=== PATIENT | male | born 1990 | race Caucasian/White ===

== ENCOUNTER 2019-06-07 13:50 | Emergency (ER) | payer SELFPAY ==
--- NOTE | 2019-06-07 14:12 | Event Note ---
ED Screening Note ED Screening Note: pt presents to the ED for lower back pain he was working and picked a heavy bag felt a popping sensation never hurt back before no numbness or weakness no bowel or bladder incontinence PMHx none no daily meds no allergies to meds no smoker no drinker no drug use This initial assessment/diagnostic orders/clinical plan/treatment(s) is/are subject to change based on patients health status, clinical progression and re- assessment by fellow clinical providers in the ED. Further treatment and workup at subsequent clinical providers discretion. Patient/guardian urged not to elope from the ED as their condition may be serious if not clinically assessed and managed. Initial orders include: XR of the L-spine
--- NOTE | 2019-06-07 15:02 | XRay Report ---
LUMBOSACRAL SPINE 3 VIEWS INDICATION / CLINICAL INFORMATION: Lower back pain for less than 24 hours. COMPARISON: None available. FINDINGS: BONES / JOINT(S): The vertebral body heights and disc spaces are well-maintained. The pedicles are in tact and the SI joints are normal. There is no evidence of fracture, subluxation or destructive lesio n. SOFT TISSUES: No significant abnormality. ADDITIONAL FINDINGS: None. IMPRESSION: Negative study. Signer Name: Hans Greene MD Signed: 06/07/2019 2:58 PM Workstation Name: [id number]
[2019-06-07] MEDS ORDERED: TORADOL IM ONE (18:05)
[2019-06-07] MEDS ORDERED: FLEXERIL PO ONE (18:05)
--- NOTE | 2019-06-07 18:37 | Emergency Department Report ---
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 Limitations: Language Barrier - History of Present Illness Initial Comments: Patient is a 28-year-old male who presents for low back pain states he was lifting boxes today at work and felt a strain in his low back up in pain aching burning exacerbated by bending twisting there is no numbness no tingling or decrease in bowel or bladder function patient ambulated into ED today MD Complaint: back pain Onset/Timin -: hour(s) Similar Symptoms Previously: Yes Place: work Radiation: none Severity: moderate Severity scale (0 -10): 5 Quality: burning, aching Consistency: constant Improves With: none Worsens With: walking, other (bending / twisting ) Context: while lifting, turning/twisting, bending Associated Symptoms: denies: numbness, difficulty urinating, incontinence, fever/chills - Related Data Previous Rx's Medication Instructions Recorded Last Taken Type Cyclobenzaprine [Flexeril] 10 mg PO TID PRN #30 tablet 06/07/19 Unknown Rx Menthol/Camphor [[place] 1 applicatio TP QID PRN #1 tube 06/07/19 Unknown Rx Ointment] Naproxen [Naprosyn TAB] 500 mg PO BID PRN #30 tablet 06/07/19 Unknown Rx Allergies Allergy/AdvReac Type Severity Reaction Status Date / Time No Known Allergies Allergy Unverified 06/07/19 13:53 ED Review of Systems ROS: Stated complaint: W/C BACK PAIN Other details as noted in HPI Constitutional: denies: chills, fever Eyes: denies: eye pain, eye discharge, vision change ENT: denies: ear pain, throat pain Respiratory: denies: cough, shortness of breath, wheezing Cardiovascular: denies: chest pain, palpitations Endocrine: no symptoms reported Gastrointestinal: denies: abdominal pain, nausea, diarrhea Genitourinary: denies: urgency, dysuria Musculoskeletal: back pain. denies: joint swelling, arthralgia, myalgia Skin: denies: rash, lesions Neurological: denies: headache, weakness, paresthesias Psychiatric: denies: anxiety, depression Hematological/Lymphatic: denies: easy bleeding, easy bruising ED Past Medical Hx - Past Medical History Previous Medical History?: No - Surgical History Past Surgical History?: No - Social History Smoking Status: Never Smoker Substance Use Type: None - Medications Home Medications: Home Medications Medication Instructions Recorded Confirmed Last Taken Type Cyclobenzaprine [Flexeril] 10 mg PO TID PRN #30 tablet 06/07/19 Unknown Rx Menthol/Camphor [[place] 1 applicatio TP QID PRN #1 tube 06/07/19 Unknown Rx Ointment] Naproxen [Naprosyn TAB] 500 mg PO BID PRN #30 tablet 06/07/19 Unknown Rx ED Physical Exam - General Limitations: Language Barrier General appearance: alert, in no apparent distress - Head Head exam: Present: atraumatic, normocephalic - Eye Eye exam: Present: normal appearance, PERRL, EOMI Pupils: Present: normal accommodation - ENT ENT exam: Present: mucous membranes moist - Neck Neck exam: Present: normal inspection, full ROM. Absent: lymphadenopathy, thyromegaly - Respiratory Respiratory exam: Present: normal lung sounds bilaterally. Absent: respiratory distress, wheezes, stridor, chest wall tenderness - Cardiovascular Cardiovascular Exam: Present: regular rate, normal rhythm, normal heart sounds. Absent: systolic murmur, diastolic murmur, rubs, gallop - GI/Abdominal GI/Abdominal exam: Present: soft, normal bowel sounds. Absent: distended, tenderness, guarding, rebound, bruit, hernia - Rectal Rectal exam: Present: deferred - Extremities Exam Extremities exam: Present: normal inspection, full ROM, normal capillary refill. Absent: tenderness, pedal edema, joint swelling, calf tenderness - Back Exam Back exam: Present: normal inspection, full ROM, muscle spasm, paraspinal tenderness. Absent: tenderness, CVA tenderness (R), CVA tenderness (L), vertebral tenderness (no posterior vertebral point tenderness ), rash noted - Expanded Back Exam Expanded Back exam: Absent: saddle anesthesia Back exam: Negative Straight Leg Raising: Left, Right - Neurological Exam Neurological exam: Present: alert, oriented X3, CN II-XII intact, normal gait, reflexes normal. Absent: motor sensory deficit - Expanded Neurological Exam Expanded Patient oriented to: Present: person, place, time Speech: Present: fluid speech Cranial nerves: EOM's Intact: Normal, Gag Reflex: Normal, Tongue Deviation: Normal, Nystagmus: Normal, Facial Sensation: Normal Cerebellar function: Finger to Nose: Normal, Heel to Donnelly: Normal, Romberg: Normal Upper motor neuron: Ryan Neglect: Normal, Pronator Drift: Normal, Babinski Sign: Normal, Sensory Extinction: Normal Sensory exam: Lower Extremity Light Touch: Normal, Lower Extremity Pin Prick: Normal, Lower Extremity Temperature: Normal, LE 2 Point Discrimination: Normal Motor strength exam: RUE: 5, LUE: 5, RLE: 5, LLE: 5 DTR: bicep (R): 2+, bicep (L): 2+, ankle (R): 2+, ankle (L): 2+ Best Eye Response (Malina): (4) open spontaneously Best Motor Response (Malina): (6) obeys commands Best Verbal Response (Minter): (5) oriented Minter Total: 15 - Psychiatric Psychiatric exam: Present: normal affect, normal mood - Skin Skin exam: Present: warm, dry, intact, normal color. Absent: rash ED Course Vital Signs 06/07/19 14:10 Temperature 98.1 F Pulse Rate 101 H Respiratory 18 Rate Blood Pressure 152/86 O2 Sat by Pulse 97 Oximetry ED Medical Decision Making - Radiology Data Radiology results: report reviewed, image reviewed no fracture no soft tissue abnormality - Medical Decision Making this is a low back strain plan: nsaids muscle relaxant, analgesic balm back exercises moist heat therapy. follow up with pcp in 2-3 days Critical care attestation.: If time is entered above; I have spent that time in minutes in the direct care of this critically ill patient, excluding procedure time. ED Disposition Clinical Impression: Low back strain Qualifiers: Encounter type: initial encounter Qualified Code(s): S39.012A - Strain of muscle, fascia and tendon of lower back, initial encounter Disposition: TO HOME OR SELFCARE Is pt being admited?: No Does the pt Need Aspirin: No Condition: Stable Instructions: Low Back Strain (ED), Core Strengthening Exercises (GEN) Additional Instructions: this is a low back strain plan: nsaids muscle relaxant, analgesic balm back exercises moist heat therapy. follow up with pcp in 2-3 days Prescriptions: Cyclobenzaprine [Flexeril] 10 mg PO TID PRN #30 tablet PRN Reason: Muscle Spasm Naproxen [Naprosyn TAB] 500 mg PO BID PRN #30 tablet PRN Reason: pain Menthol/Camphor [[place] Ointment] 1 applicatio TP QID PRN #1 tube PRN Reason: pain Referrals: BUCK FINLEY MD [Primary Care Provider] - 3-5 Days Forms: Work/School Release Form(ED) Time of Disposition: 18:46
[2019-06-07 19:30] VITALS: BP 124/83
== END 2019-06-07 19:25 | disposition home or self-care (01) ==
LOC: ED 13:50
DX: S39.012A Strain of muscle, fascia and tendon of lower back, initial encounter (principal); X50.0XXA Overexertion from strenuous movement or load, initial encounter; Y93.89 Activity, other specified; Y92.69 Other specified industrial and construction area as the place of occurrence of the external cause; Y99.8 Other external cause status
CPT/HCPCS: 72100; 96372; 99283; J1885